=== PATIENT | female | born 1990 | race Caucasian/White ===

== ENCOUNTER 2016-11-22 13:52 | Emergency (ER) | payer OTHER ==
[~2016-11-22 13:52] MED LIST: ABILIFY10 MG PO; ABILIFY20 MG PO; AMITRIPTYLINE100 MG PO; ANTIVIRAL PO; BACTRIM DS TABL1 TA1 PO; BENTYL10 MG PO; BENTYL20 M1 PO; CIPRO PO; COLACE PO; DIFLUCAN PO; EFFEXOR100 MG PO; EFFEXOR75 MG PO; FLEXERIL; FLEXERIL PO; HYDROCODON-ACE1 EAC5 PO; HYDROCODONE-APA1 T41 PO; KETOPROFEN PO; LEXAPRO PO; LORTAB 5/500 TA1 TA1 PO; LORTAB 7.5-3251 EACH PO; LYRICA; MAXALT MLT5 MG/TAB PO; MOBIC PO; MOBIC15 MG PO; NAPROSYN-EC500 M1 PO; NEURONTIN PO; NEURONTIN600 MG PO; NO MEDICATIONS; NORCO 5/325 TAB1 TAB PO; NORCO 5MG-325MG PO; ORTHO TRI-7 DAYS X PO; ORUDIS75 M1 PO; PAMELOR; PAMELOR PO; PHENERGAN; PHENERGAN25 M1 PO; PHENERGAN25 MG PO; PREDNISONE10 MG/DOSE PO; PRENATAL MULITV1 TAB PO; PRENATAL1 TA1; PRILOSEC PO; PYRIDIUM100 MG PO; ROBAXIN PO; ROBAXIN500 MG PO; TOPAMAX; TOPAMAX PO; TOPAMAX25 MG PO; TYLENOL #3 PO; UNISOM25 M1; VIBRAMYCIN100 M1 PO; VICODIN 5/1 TAB 5/50 PO; XANAX XR0.5 MG PO; ZOFRAN ODT PO; ZOFRAN ODT4 MG SL; ZOFRANODT PO; [UNRECOGNIZED DRUG - REMARK]
== END 2016-11-22 14:13 | disposition hospice, home (50) ==
LOC: SED 13:52
DX: O9A.212 Injury, poisoning and certain other consequences of external causes complicating pregnancy, second trimester (principal); O99.352 Diseases of the nervous system complicating pregnancy, second trimester; O99.332 Smoking (tobacco) complicating pregnancy, second trimester; S39.91XA Unspecified injury of abdomen, initial encounter; F17.210 Nicotine dependence, cigarettes, uncomplicated; Z3A.27 27 weeks gestation of pregnancy; G43.909 Migraine, unspecified, not intractable, without status migrainosus; V89.2XXA Person injured in unspecified motor-vehicle accident, traffic, initial encounter; Y92.410 Unspecified street and highway as the place of occurrence of the external cause
CPT/HCPCS: 99285